=== PATIENT | female | born 1970 | race Caucasian/White ===

== ENCOUNTER 2016-06-15 09:45 | Emergency (ER) | payer BC, OTHER ==
[2016-06-15 10:27] VITALS: BP 142/83
--- NOTE | 2016-06-15 11:08 | UC ---
Complaint Female HPI - HPI Summary HPI Summary: PT HERE CONCERNED ABOUT IRREGULAR PERIOD. HAD REGULAR MENSES EVERY MONTH UNTIL MARCH 2016. THEN NO MENSES IN APRIL. NOW HAS BEEN LIGHTLY SPOTTING FOR ABOUT 2 WEEKS. SLIGHTLY HEAVIER AFTER SEX. HAS VASECTOMY SO PT IS SURE SHE IS NOT . NO FEVER, NO PAIN, NO URINARY SX. WAS GOOGLING ON-LINE AND IS VERY ANXIOUS ABOUT THE POSSIBILITY OF CANCER. - History Of Current Complaint Chief Complaint: UCGeneralIllness Stated Complaint: PERSONAL Time Seen by Provider: 06/15/16 10:45 Hx Obtained From: Patient Hx Last Menstrual Period: normal one mar. Onset/Duration: Gradual Onset, Lasting Weeks, Still Present Severity Currently: None Pain Intensity: 0 Pain Scale Used: 0-10 Numeric Character: Not Applicable Aggravating Factor(s): Nothing Alleviating Factor(s): Nothing Associated Signs And Symptoms: Positive: Vaginal Bleeding/Discharge - Allergies/Home Medications Allergies/Adverse Reactions: Allergies Allergy/AdvReac Type Severity Reaction Status Date / Time Penicillins [PCN] Allergy Rash Verified 06/15/16 10:15 Home Medications: Home Medications NK [No Home Medications Reported] 06/15/16 [History Confirmed 06/15/16] PMH/Surg Hx/FS Hx/Imm Hx Previously Healthy: Yes - Surgical History Surgical History: Yes Surgery Procedure, Year, and Place: kin - Family History Known Family History: Positive: Hypertension Family History: MULTIPLE MYELOMA - DAD - Social History Alcohol Use: Rare Substance Use Type: None Smoking Status (MU): Never Smoked Tobacco Review of Systems Constitutional: Negative Skin: Negative Cardiovascular: Negative Gastrointestinal: Negative Genitourinary: Other - VAGINAL SPOTTING All Other Systems Reviewed And Are Negative: Yes Physical Exam Triage Information Reviewed: Yes Appearance: Well-Appearing, No Pain Distress, Well-Nourished Vital Signs: Initial Vital Signs Temp 99.4 F 06/15/16 10:15 Pulse 98 06/15/16 10:15 Resp 18 06/15/16 10:15 BP 142/83 06/15/16 10:15 Pulse Ox 100 06/15/16 10:15 Vital Signs Reviewed: Yes Eyes: Positive: Conjunctiva Clear ENT: Positive: Hearing grossly normal Neck: Positive: Supple Respiratory: Positive: No respiratory distress, No accessory muscle use Cardiovascular: Positive: Pulses Normal Abdomen Description: Positive: Soft Musculoskeletal: Positive: No Edema Neurological: Positive: Alert Psychological: Positive: Age Appropriate Behavior, Other: - ANXIOUS Skin: Negative: rashes Complaint Female Dx - Course Course Of Treatment: DISCUSSED LOW PROBABILITY OF CANCER. ADVISED PT TO SEEK EVALUATION WITH HER PCP OR WITH LOAN EXAMINER FOR FURTHER EVALUATION AND TO R/O MALIGNANCY. - Differential Dx/Diagnosis Provider Diagnoses: VAGINAL SPOTTING - LIKELY PERIMENOPAUSAL Discharge - Discharge Plan Condition: Stable Disposition: HOME Patient Education Materials: Menopause (ED) Referrals: COURTNEY Blank [Primary Care Provider] - As Soon As Possible Jovany Hall MD [Medical Doctor] - As Soon As Possible Additional Instructions: YOU ARE LIKELY STARTING TO GO THROUGH PITO-MENOPAUSE. FOLLOW-UP WITH YOUR PCP OR LOAN EXAMINER FOR FURTHER EVALUATION. YOU MAY BENEFIT FROM AN ULTRASOUND AND/OR LAB WORK.
== END 2016-06-15 11:23 | disposition home or self-care (01) ==
LOC: UCEAST 09:45
DX: N92.6 Irregular menstruation, unspecified (principal); N93.9 Abnormal uterine and vaginal bleeding, unspecified; Z88.0 Allergy status to penicillin
CPT/HCPCS: 99201; G0463